=== PATIENT | female | born 1965 | race Caucasian/White ===

== ENCOUNTER 2018-04-15 09:00 | Outpatient (RCR) | payer BC, SELFPAY ==
--- NOTE | 2018-03-09 18:14 | PT.OTN ---
Addendum entered and electronically signed by Candace Gould, PT 03/17/18 11:32: Transition note: On February 15, 2018 our therapy services consisting of Speech, Occupational, and Physical Therapy transitioned from the [employer] electronic documentation system to a new [employer] electronic documentation system.?? All documentation prior to February 15 can be found under [employer] saved data. From February 15 forward all medical record documentation will be in [email or web address]. Original Note: Current Diagnoses Stiffness of left knee, not elsewhere classified (03/09/18) Other specified joint disorders, left knee (03/09/18) Muscle weakness (generalized) (03/09/18) Iliotibial band syndrome, left leg (03/09/18) Physical Therapy Treatment Note PT-OP-A Visit Information Start: 03/09/18 18:02 Freq: Status: Active Protocol: Document 03/09/18 16:45 [facility] (Rec: 03/09/18 18:13 [facility] [email or web address]) Out-Patient Physical Therapy Visit Information Visit Information Visit Type Treatment Note Visit Start Time 16:03 Visit Stop Time 16:45 Total Visit Minutes 42 Visit Number 4 Number of OCCUPATIONAL THERAPY SPECIALIST Visits 0 Evaluation Information Evaluation Date 01/28/18 PT-OP-C Subjective Start: 03/09/18 18:02 Freq: Status: Active Protocol: Document 03/09/18 16:45 [facility] (Rec: 03/09/18 18:13 [facility] [email or web address]) OP-PT Subjective Patient Comments Patient Comments Pt notes that her pain and swelling of the L knee are improving a little. She did some seated rowing which flared up her pain and swelling, but has not done that since. PT-OP-J Posture/Palpation/Skin Start: 03/09/18 18:02 Freq: Status: Active Protocol: Document 03/09/18 16:45 [facility] (Rec: 03/09/18 18:13 [facility] [email or web address]) Palpation Assessment Location One Palpation Location L IT band Palpation Findings Tenderness Palpation Details moderate TTP PT-OP-Q Treatments Start: 03/09/18 18:02 Freq: Status: Active Protocol: Document 03/09/18 16:45 [facility] (Rec: 03/09/18 18:13 [facility] [email or web address]) Manual Therapy Treatment Soft Tissue Mobilization 2 Body Location L hamstrings Mobilization Type Strumming Intensity/Depth Moderate Body Position Prone Comments 12 min. 1 Body Location L IT band Mobilization Type Strumming Intensity/Depth Moderate Body Position Supine Comments 18 min. Joint Mobilizations 2 Joint L tibiofibular (superior) Direction AP Grade IV Body Position Supine Reps/Duration 6 min. 1 Joint L tibiofemoral Direction posterior, anterior Grade IV Body Position Supine Reps/Duration 6 min. Self-Care/Home Management Treatment Education Patient Education Home Exercise Program Safety Other Education discussed about cont to perform HEP and to not perform deep knee flexion activities or repetitive aerobic training at this time (i.e. bike, running, rowing, elliptical, etc.) PT-OP-T Assessment and Plan Start: 03/09/18 18:02 Freq: Status: Active Protocol: Document 03/09/18 16:45 [facility] (Rec: 03/09/18 18:13 [facility] [email or web address]) Physical Therapy Assessment Assessment Summary Assessment Pt still with mild to moderate swelling of the lateral L knee, but pt appears to be compliant with HEP. Her exacerbation of pain and swelling post-rowing activity likely due to this being a repetitive and an activity which requires significant knee flexion which she does not tolerate well at this time . Pt with tibiofibular joint ( superior) stiffness, which may be playing a role in pain and limited ROM. Physical Therapy Plan Frequency and Duration Frequency of Treatment 2x/Week Duration of Treatment 8 weeks Plan of Care Start Date 01/28/18 Plan of Care End Date 03/24/18 Next Visit Focus/Plan Next Visit Plan cont. joint mobilizations, STR , if still swelling consider ultrasound. Please Sign and Return: I have reviewed this Plan of Care and certify that the skilled therapy services above are required to meet the patient???s needs. Physician Signature Date Printed Name and Credentials Clinical Instructor Signature Printed Name and Credentials
--- NOTE | 2018-03-11 17:05 | PT.OTN ---
Current Diagnoses Stiffness of left knee, not elsewhere classified (03/11/18) Other specified joint disorders, left knee (03/11/18) Muscle weakness (generalized) (03/11/18) Iliotibial band syndrome, left leg (03/11/18) Physical Therapy Treatment Note PT-OP-A Visit Information Start: 03/09/18 18:02 Freq: Status: Active Protocol: Document 03/11/18 16:35 [facility] (Rec: 03/11/18 17:04 [facility] [email or web address]) Out-Patient Physical Therapy Visit Information Visit Information Visit Type Treatment Note Visit Start Time 16:00 Visit Stop Time 16:35 Total Visit Minutes 35 Visit Number 5 Number of DEICER REPAIRER PNEUMATIC Visits 0 Evaluation Information Evaluation Date 01/28/18 PT-OP-C Subjective Start: 03/09/18 18:02 Freq: Status: Active Protocol: Document 03/11/18 16:35 [facility] (Rec: 03/11/18 17:04 [facility] [email or web address]) OP-PT Subjective Patient Comments Patient Comments Pt states that she felt better after session on Wednesday, and feels like her knee is a little less swollen. PT-OP-J Posture/Palpation/Skin Start: 03/09/18 18:02 Freq: Status: Active Protocol: Document 03/11/18 16:35 RCC (Rec: 03/11/18 17:04 [facility] [email or web address]) Palpation Assessment Location One Palpation Location L IT band Palpation Findings Tenderness Palpation Details mild to mod TTP PT-OP-Q Treatments Start: 03/09/18 18:02 Freq: Status: Active Protocol: Document 03/11/18 16:35 [facility] (Rec: 03/11/18 17:04 [facility] [email or web address]) Manual Therapy Treatment Soft Tissue Mobilization 3 Body Location L gastroc Mobilization Type Strumming Intensity/Depth Moderate Body Position Prone Comments 7 min. 2 Body Location L hamstrings Mobilization Type Strumming Intensity/Depth Moderate Body Position Prone Comments 8 min. 1 Body Location L IT band Mobilization Type Strumming Intensity/Depth Moderate Body Position Supine Comments 12 min. Joint Mobilizations 2 Joint L tibiofibular (superior) Direction AP Grade IV Body Position Supine Reps/Duration 8 min. PT-OP-T Assessment and Plan Start: 03/09/18 18:02 Freq: Status: Active Protocol: Document 03/11/18 16:35 RCC (Rec: 03/11/18 17:04 [facility] [email or web address]) Physical Therapy Assessment Assessment Summary Assessment Pt still with mild to moderate restriction of the L IT band, however does appear to have mildly improved IT band mobility. Pt tolerated mobilization of superior tibiofibular joint, and knee extension to 0 degrees AROM after session. Pt is yet to return to her prior level of recreational activities at this time due to pain, swelling, and decreased soft tissue mobility. Physical Therapy Plan Frequency and Duration Frequency of Treatment 2x/Week Duration of Treatment 8 weeks Plan of Care Start Date 01/28/18 Plan of Care End Date 03/24/18 Next Visit Focus/Plan Next Visit Plan STR IT band, gastroc and hamstrings. Progress toward slow closed chain (lunges) activities. Please Sign and Return: I have reviewed this Plan of Care and certify that the skilled therapy services above are required to meet the patient???s needs. Physician Signature Date Printed Name and Credentials Clinical Instructor Signature Printed Name and Credentials
--- NOTE | 2018-03-23 16:58 | PT.OTN ---
Current Diagnoses Stiffness of left knee, not elsewhere classified (03/23/18) Other specified joint disorders, left knee (03/23/18) Muscle weakness (generalized) (03/23/18) Iliotibial band syndrome, left leg (03/23/18) Physical Therapy Treatment Note PT-OP-A Visit Information Start: 03/09/18 18:02 Freq: Status: Active Protocol: Document 03/23/18 16:40 RCC (Rec: 03/23/18 16:58 [facility] [email or web address]) Out-Patient Physical Therapy Visit Information Visit Information Visit Type Treatment Note Visit Start Time 16:00 Visit Stop Time 16:40 Total Visit Minutes 40 Visit Number 6 Number of TANYARD WORKER Visits 0 Evaluation Information Evaluation Date 01/28/18 PT-OP-C Subjective Start: 03/09/18 18:02 Freq: Status: Active Protocol: Document 03/23/18 16:40 [facility] (Rec: 03/23/18 16:58 [facility] [email or web address]) OP-PT Subjective Patient Comments Patient Comments Pt states that she definitely feels better after having therapy 2 times per week vs once. She is doing yoga, but not back to spin classes. PT-OP-J Posture/Palpation/Skin Start: 03/09/18 18:02 Freq: Status: Active Protocol: Document 03/23/18 16:40 [facility] (Rec: 03/23/18 16:58 [facility] [email or web address]) Palpation Assessment Location One Palpation Location L IT band Palpation Findings Tenderness Palpation Details mild to mod TTP PT-OP-Q Treatments Start: 03/09/18 18:02 Freq: Status: Active Protocol: Document 03/23/18 16:40 [facility] (Rec: 03/23/18 16:58 [facility] [email or web address]) Therapeutic Exercises Supine Exercises 1 Supine Exercise Name Sciatic nerve glide Side left Reps/Minutes 15 reps Standing Exercises 1 Standing Exercise Name Femoral nerve glide Side left Equipment Used ball Reps/Minutes 15 reps Manual Therapy Treatment Soft Tissue Mobilization 3 Body Location L gastroc Mobilization Type Strumming Intensity/Depth Moderate Body Position Prone Comments 5 min. 2 Body Location L hamstrings Mobilization Type Strumming Intensity/Depth Moderate Body Position Prone Comments 5 min. 1 Body Location L IT band Mobilization Type Strumming Intensity/Depth Moderate Body Position Supine Comments 15 min. Joint Mobilizations 2 Joint L tibiofibular (superior) Direction AP Grade IV Body Position Supine Reps/Duration 5 min. PT-OP-T Assessment and Plan Start: 03/09/18 18:02 Freq: Status: Active Protocol: Document 03/23/18 16:40 [facility] (Rec: 03/23/18 16:58 [facility] [email or web address]) Physical Therapy Assessment Assessment Summary Assessment Pt with less swelling in the L knee, still with tenderness mostly at the distal portion of the IT band. Pt with tension in both the sciatic and femoral nerves, and is to perform nerve glides at home. Physical Therapy Plan Next Visit Focus/Plan Next Note Type Treatment Note Next Visit Plan Slow closed chain (lunges) activities, Elliptical. Please Sign and Return: I have reviewed this Plan of Care and certify that the skilled therapy services above are required to meet the patient?s needs. Physician Signature Date Printed Name and Credentials Clinical Instructor Signature Printed Name and Credentials
--- NOTE | 2018-03-25 17:21 | PT.OTN ---
Current Diagnoses Stiffness of left knee, not elsewhere classified (03/25/18) Other specified joint disorders, left knee (03/25/18) Muscle weakness (generalized) (03/25/18) Iliotibial band syndrome, left leg (03/25/18) Physical Therapy Treatment Note PT-OP-A Visit Information Start: 03/09/18 18:02 Freq: Status: Active Protocol: Document 03/25/18 16:45 [facility] (Rec: 03/27/18 17:20 [facility] [email or web address]) Out-Patient Physical Therapy Visit Information Visit Information Visit Type Treatment Note Visit Start Time 16:00 Visit Stop Time 16:45 Total Visit Minutes 45 Visit Number 7 Number of PRODUCT MANAGEMENT INTERN Visits 0 Evaluation Information Evaluation Date 01/28/18 PT-OP-C Subjective Start: 03/09/18 18:02 Freq: Status: Active Protocol: Document 03/25/18 16:45 [facility] (Rec: 03/27/18 17:20 [facility] [email or web address]) OP-PT Subjective Patient Comments Patient Comments Pt notes she feels like swelling is down. She is doing modified yoga right now for flexibility and her HEP. Patient Reported Progress Improving OP-PT Pain Assessment Location Left Lateral Knee Intensity 2 Scale Used Numeric (1 - 10) Description Sharp Tender PT-OP-F Manual Assessment Start: 03/27/18 17:03 Freq: Status: Active Protocol: Document 03/25/18 16:45 [facility] (Rec: 03/27/18 17:20 [facility] [email or web address]) Manual Assessments Joint Mobility Assessment Joint Mobility Assessment hypomobility of superior tibiofibular joint. PT-OP-J Posture/Palpation/Skin Start: 03/09/18 18:02 Freq: Status: Active Protocol: Document 03/25/18 16:45 [facility] (Rec: 03/27/18 17:20 [facility] [email or web address]) Palpation Assessment Location One Palpation Location L IT band Palpation Findings Tenderness Palpation Details mild to mod TTP Skin Assessment Circumference Measurement 1 Location L knee (joint line) Measurement (Centimeters) 35 PT-OP-K Range of Motion Start: 03/27/18 17:03 Freq: Status: Active Protocol: Document 03/25/18 16:45 RCC (Rec: 03/27/18 17:20 [facility] [email or web address]) Knee Goniometric Range of Motion Knee Measured in Degrees Left Flexion Active (degrees) 136 Extension Active (degrees) 0 Knee ROM Limitations Knee ROM Limitations Soft Tissue Tightness PT-OP-M Strength Start: 03/27/18 17:03 Freq: Status: Active Protocol: Document 03/25/18 16:45 [facility] (Rec: 03/27/18 17:20 [facility] [email or web address]) Hip Strength Hip Manual Muscle Testing Left Flexion (L2) 5 Normal Abduction 5 Normal External Rotation 4+ Good+ PT-OP-Q Treatments Start: 03/09/18 18:02 Freq: Status: Active Protocol: Document 03/25/18 16:45 [facility] (Rec: 03/27/18 17:20 [facility] [email or web address]) Cardio Equipment Elliptical Duration (Minutes) 6 Resistance 1 Therapeutic Exercises Standing Exercises 3 Standing Exercise Name squats Side bilateral Equipment Used standing bar Reps/Minutes 2 x 10 2 Standing Exercise Name Lunges Side bilateral Reps/Minutes 2 x 10 Manual Therapy Treatment Soft Tissue Mobilization 2 Body Location L hamstrings Mobilization Type Strumming Intensity/Depth Moderate Comments 5 min. 1 Body Location L IT band Mobilization Type Strumming Intensity/Depth Moderate Body Position Supine Comments 15 min. Joint Mobilizations 2 Joint L tibiofibular (superior) Direction AP Grade IV Body Position Supine Reps/Duration 4 min. Other Other Manual Treatments 5 min: hip MMT, knee ROM, palpation, girth measurements. PT-OP-T Assessment and Plan Start: 03/09/18 18:02 Freq: Status: Active Protocol: Document 03/25/18 16:45 [facility] (Rec: 03/27/18 17:20 [facility] [email or web address]) Physical Therapy Assessment Goals Five Impairment body mechanics Front Worker Goal (LTG) pt will perform step downs off of a 6 step with neutral knee/LE alignment prior to d/c . LTG Duration 6 weeks Four Impairment L hip weakness Front Worker Goal (LTG) 5/5 hip abduction, flexion, and ER LTG Duration 6 weeks Three Impairment L knee ROM Front Worker Goal (LTG) 0-145 deg AROM LTG Duration 6 weeks Two Impairment Pain Front Worker Goal (LTG) 0/10 pain LTG Duration 6 weeks One Impairment Recreational activity Halfway Goal (LTG) Pt will return to spin class and exercises at the gym without restrictions 3-4 days per week for 1 hr prior to d/c LTG Duration 6 weeks Progress Towards Goals Progress Towards Goals Progressing Toward Goals Progress Comments Pt with 5/5 MMT hip flexion and abduction, is doing yoga ( modified) but not back to maritime officer at the gym. Pain 2/10 ( rated 3/10) on initial evaluation, and knee ROM to 136 deg AROM of flexion (left) . Assessment Summary Assessment Pt's swelling decreased 0.9 cm since initial evaluation at the L knee joint line, and pain slightly improved. Pt tolerated the elliptical well, which was her first repetitive cardio activity since initial injury that did not flare up her L knee (pt tried rowing on her own with increased pain). Overall, pt appears to be improving with decreased limitations of activities, improved strength, and less swelling but is still not back to her prior level of function. Pt would benefit from continuing skilled outpatient physical therapy to achieve established goals and return to prior level of function. Physical Therapy Plan Frequency and Duration Frequency of Treatment 2x/Week Duration of Treatment 6 weeks Plan of Care Start Date 03/25/18 Plan of Care End Date 05/06/18 Therapeutic Interventions Therapeutic Interventions Aquatic Therapy Balance Training Gait Training Home Exercise Program Joint Mobilizations Manual Therapy Neuromuscular Re-education Patient/Caregiver Education Self-Care/Home Management Soft Tissue Mobilization Taping Therapeutic Activities Therapeutic Exercises Modalities Cold Pack/Ice Massage Electric Stimulation Hot Packs Iontophoresis Ultrasound Other Therapeutic Interventions Iontophoresis: dexamethasone 4 mg/mL. Next Visit Focus/Plan Next Note Type Treatment Note Next Visit Plan progress L knee and hip strength, activity tolerance. Please Sign and Return: I have reviewed this Plan of Care and certify that the skilled therapy services above are required to meet the patient?s needs. Physician Signature Date Printed Name and Credentials Clinical Instructor Signature Printed Name and Credentials
--- NOTE | 2018-04-13 16:50 | PT.OTN ---
Current Diagnoses Stiffness of left knee, not elsewhere classified (04/13/18) Other specified joint disorders, left knee (04/13/18) Muscle weakness (generalized) (04/13/18) Iliotibial band syndrome, left leg (04/13/18) Physical Therapy Treatment Note PT-OP-A Visit Information Start: 03/09/18 18:02 Freq: Status: Active Protocol: Document 04/13/18 16:50 RCC (Rec: 04/13/18 17:11 RCC [email or web address]) Out-Patient Physical Therapy Visit Information Visit Information Visit Type Treatment Note Visit Start Time 16:05 Visit Stop Time 16:50 Total Visit Minutes 45 Visit Number 8 Number of CIVIL ENGINEERING PROFESSOR Visits 0 Evaluation Information Evaluation Date 01/28/18 PT-OP-C Subjective Start: 03/09/18 18:02 Freq: Status: Active Protocol: Document 04/13/18 16:50 RCC (Rec: 04/13/18 17:11 RCC [email or web address]) OP-PT Subjective Patient Comments Patient Comments Pt notes some snapping going up stairs. PT-OP-F Manual Assessment Start: 03/27/18 17:03 Freq: Status: Active Protocol: Document 04/13/18 16:50 [facility] (Rec: 04/13/18 17:11 [facility] [email or web address]) Manual Assessments Soft Tissue Assessment Soft Tissue Mobility Assessment TTP: L IT band, TFL, lateral quads PT-OP-J Posture/Palpation/Skin Start: 03/09/18 18:02 Freq: Status: Active Protocol: Document 03/25/18 16:45 [facility] (Rec: 03/27/18 17:20 [facility] [email or web address]) Palpation Assessment Location One Palpation Location L IT band Palpation Findings Tenderness Palpation Details mild to mod TTP Skin Assessment Circumference Measurement 1 Location L knee (joint line) Measurement (Centimeters) 35 PT-OP-K Range of Motion Start: 03/27/18 17:03 Freq: Status: Active Protocol: Document 03/25/18 16:45 [facility] (Rec: 03/27/18 17:20 [facility] [email or web address]) Knee Goniometric Range of Motion Knee Measured in Degrees Left Flexion Active (degrees) 136 Extension Active (degrees) 0 Knee ROM Limitations Knee ROM Limitations Soft Tissue Tightness PT-OP-M Strength Start: 03/27/18 17:03 Freq: Status: Active Protocol: Document 03/25/18 16:45 [facility] (Rec: 03/27/18 17:20 [facility] [email or web address]) Hip Strength Hip Manual Muscle Testing Left Flexion (L2) 5 Normal Abduction 5 Normal External Rotation 4+ Good+ PT-OP-Q Treatments Start: 03/09/18 18:02 Freq: Status: Active Protocol: Document 04/13/18 16:50 [facility] (Rec: 04/13/18 17:11 [facility] [email or web address]) Therapeutic Exercises Supine Exercises 2 Supine Exercise Name Rectus femoris and psoas stretch Side left Reps/Minutes 30 sec holds Other Exercises 1 Other Exercise Name IT band stretch (prone and standing) Side left Reps/Minutes 30 sec hold each Manual Therapy Treatment Soft Tissue Mobilization 4 Body Location L TFL Mobilization Type Strumming Intensity/Depth Moderate Body Position Supine Comments 4 min 2 Body Location L hamstrings Mobilization Type Strumming Intensity/Depth Moderate Comments 8 min. 1 Body Location L IT band Mobilization Type Strumming Intensity/Depth Moderate Body Position Supine Comments 20 min. PT-OP-R Modalities Start: 04/13/18 16:57 Freq: Status: Active Protocol: Document 04/13/18 16:50 [facility] (Rec: 04/13/18 17:11 [facility] [email or web address]) Ultrasound Therapy Treatment Left Lateral Knee Treatment Duration (minutes) 8 Coupling Medium Ultrasound Gel Applicator Size (cm2) 10 Frequency Setting (mHz) 1 Duty Cycle 100 Intensity Setting (w/cm2) 1.2 Comments IT band (distal) PT-OP-T Assessment and Plan Start: 03/09/18 18:02 Freq: Status: Active Protocol: Document 04/13/18 16:50 [facility] (Rec: 04/13/18 17:11 [facility] [email or web address]) Physical Therapy Assessment Assessment Summary Assessment Pt with (+) snapping of the L knee with ascending stairs, lateral knee likely the IT band vs PF dysfunction. Pt with improved flexibility of the IT band but still with tension, greatest distally. She is not back to her prior level of activities. Physical Therapy Plan Frequency and Duration Frequency of Treatment 2x/Week Duration of Treatment 6 weeks Plan of Care Start Date 03/25/18 Plan of Care End Date 05/06/18 Next Visit Focus/Plan Next Note Type Treatment Note Next Visit Plan L hip strengthening.
--- NOTE | 2018-04-15 09:40 | PT.OTN ---
Current Diagnoses Stiffness of left knee, not elsewhere classified (04/15/18) Other specified joint disorders, left knee (04/15/18) Muscle weakness (generalized) (04/15/18) Iliotibial band syndrome, left leg (04/15/18) Physical Therapy Treatment Note PT-OP-A Visit Information Start: 03/09/18 18:02 Freq: Status: Active Protocol: Document 04/15/18 09:40 [facility] (Rec: 04/15/18 09:46 [facility] [email or web address]) Out-Patient Physical Therapy Visit Information Visit Information Visit Type Treatment Note Visit Start Time 09:00 Visit Stop Time 09:40 Total Visit Minutes 40 Visit Number 9 Number of UNDERWRITING SPECIALIST Visits 0 Evaluation Information Evaluation Date 01/28/18 PT-OP-C Subjective Start: 03/09/18 18:02 Freq: Status: Active Protocol: Document 04/15/18 09:40 [facility] (Rec: 04/15/18 09:46 [facility] [email or web address]) OP-PT Subjective Patient Comments Patient Comments Pt notes her lateral knee is a good sore, since last session. Her L knee still snaps occasionally but less than earlier this week. PT-OP-F Manual Assessment Start: 03/27/18 17:03 Freq: Status: Active Protocol: Document 04/15/18 09:40 [facility] (Rec: 04/15/18 09:46 [facility] [email or web address]) Manual Assessments Joint Mobility Assessment Joint Mobility Assessment hypomobility of superior tibiofibular joint. PT-OP-J Posture/Palpation/Skin Start: 03/09/18 18:02 Freq: Status: Active Protocol: Document 03/25/18 16:45 RCC (Rec: 03/27/18 17:20 [facility] [email or web address]) Palpation Assessment Location One Palpation Location L IT band Palpation Findings Tenderness Palpation Details mild to mod TTP Skin Assessment Circumference Measurement 1 Location L knee (joint line) Measurement (Centimeters) 35 PT-OP-K Range of Motion Start: 03/27/18 17:03 Freq: Status: Active Protocol: Document 03/25/18 16:45 RCC (Rec: 03/27/18 17:20 [facility] [email or web address]) Knee Goniometric Range of Motion Knee Measured in Degrees Left Flexion Active (degrees) 136 Extension Active (degrees) 0 Knee ROM Limitations Knee ROM Limitations Soft Tissue Tightness PT-OP-M Strength Start: 03/27/18 17:03 Freq: Status: Active Protocol: Document 03/25/18 16:45 RCC (Rec: 03/27/18 17:20 RCC [email or web address]) Hip Strength Hip Manual Muscle Testing Left Flexion (L2) 5 Normal Abduction 5 Normal External Rotation 4+ Good+ PT-OP-Q Treatments Start: 03/09/18 18:02 Freq: Status: Active Protocol: Document 04/15/18 09:40 RCC (Rec: 04/15/18 09:46 [facility] [email or web address]) Therapeutic Activity Therapeutic Activity 1 Name STR L hamstring Reps/Minutes 2 min Comments self-STR with tennis ball Manual Therapy Treatment Soft Tissue Mobilization 4 Body Location L TFL Mobilization Type Strumming Intensity/Depth Moderate Body Position Supine 2 Body Location L hamstrings Mobilization Type Strumming Intensity/Depth Moderate 1 Body Location L IT band Mobilization Type Strumming Intensity/Depth Moderate Body Position Supine Joint Mobilizations 3 Joint PF Direction inferior, superior, medial Grade IV Body Position Supine 2 Joint L tibiofibular (superior) Direction AP, PA Grade IV Body Position Supine PT-OP-R Modalities Start: 04/13/18 16:57 Freq: Status: Active Protocol: Document 04/13/18 16:50 RCC (Rec: 04/13/18 17:11 RCC [email or web address]) Ultrasound Therapy Treatment Left Lateral Knee Treatment Duration (minutes) 8 Coupling Medium Ultrasound Gel Applicator Size (cm2) 10 Frequency Setting (mHz) 1 Duty Cycle 100 Intensity Setting (w/cm2) 1.2 Comments IT band (distal) PT-OP-T Assessment and Plan Start: 03/09/18 18:02 Freq: Status: Active Protocol: Document 04/15/18 09:40 RCC (Rec: 04/15/18 09:46 [facility] [email or web address]) Physical Therapy Assessment Assessment Summary Assessment Pt with improved tibiofibular joint mobility after manual therapy and STR to lateral HS. Pt continues to have mild L knee swelling and is not able to run or perform recreational activities without modifications. Physical Therapy Plan Frequency and Duration Frequency of Treatment 2x/Week Duration of Treatment 6 weeks Plan of Care Start Date 03/25/18 Plan of Care End Date 05/06/18 Next Visit Focus/Plan Next Note Type Treatment Note Next Visit Plan L hip and knee strengthening.
--- NOTE | 2018-09-29 10:02 | PT.OPDS ---
Current Diagnoses Stiffness of left knee, not elsewhere classified (04/15/18) Other specified joint disorders, left knee (04/15/18) Muscle weakness (generalized) (04/15/18) Iliotibial band syndrome, left leg (04/15/18) Provider Visit Care Team Role Provider Type Anselmo Ross Family Provider Non-Staff Primary Care Provider Specialty: Medical Address: [address], [place], [address] Email: Jt España MD Attending Provider Physician Specialty: Orthopedic Surgery Address: [address] [place] [address], [id number] Email: [email or web address] Visit Number Visit Number 9 Discharge Summary PT-OP-C Subjective Start: 03/09/18 18:02 Freq: Status: Active Protocol: Document 04/15/18 09:40 RCC (Rec: 04/15/18 09:46 [facility] [email or web address]) OP-PT Subjective Patient Comments Patient Comments Pt notes her lateral knee is a good sore, since last session. Her L knee still snaps occasionally but less than earlier this week. PT-OP-F Manual Assessment Start: 03/27/18 17:03 Freq: Status: Active Protocol: Document 04/15/18 09:40 RCC (Rec: 04/15/18 09:46 [facility] [email or web address]) Manual Assessments Joint Mobility Assessment Joint Mobility Assessment hypomobility of superior tibiofibular joint. PT-OP-J Posture/Palpation/Skin Start: 03/09/18 18:02 Freq: Status: Active Protocol: Document 03/25/18 16:45 RCC (Rec: 03/27/18 17:20 [facility] [email or web address]) Palpation Assessment Location One Palpation Location L IT band Palpation Findings Tenderness Palpation Details mild to mod TTP Skin Assessment Circumference Measurement 1 Location L knee (joint line) Measurement (Centimeters) 35 PT-OP-K Range of Motion Start: 03/27/18 17:03 Freq: Status: Active Protocol: Document 03/25/18 16:45 RCC (Rec: 03/27/18 17:20 [facility] [email or web address]) Knee Goniometric Range of Motion Knee Measured in Degrees Left Flexion Active (degrees) 136 Extension Active (degrees) 0 Knee ROM Limitations Knee ROM Limitations Soft Tissue Tightness PT-OP-M Strength Start: 03/27/18 17:03 Freq: Status: Active Protocol: Document 03/25/18 16:45 RCC (Rec: 03/27/18 17:20 [facility] [email or web address]) Hip Strength Hip Manual Muscle Testing Left Flexion (L2) 5 Normal Abduction 5 Normal External Rotation 4+ Good+ PT-OP-T Assessment and Plan Start: 03/09/18 18:02 Freq: Status: Active Protocol: Document 09/29/18 09:59 [facility] (Rec: 09/29/18 10:02 [facility] [email or web address]) Physical Therapy Assessment Assessment Summary Assessment Pt attended 9 PT sessions including the initial evaluation, at which time she was improving and able to get back to walking and elliptical training, but was not appropriate to return to spin class (mechanism of injury). Pt did not attend or schedule further PT after 04/15/18, and at this time given the amount of time that has passed since she was last seen, we would require a new PT referral if appropriate to return to PT. Pt is d/c at this time, recommend follow up with PCP if issues continue and/or worsen. Goals were unable to be assessed due to pt not completing the most recent/ current POC. Physical Therapy Plan Discharge Physical Therapy Discharge Reasons No Longer Attending PT
== END 2018-09-29 13:30 ==
LOC: PHYS 09:00
PROVIDERS: Family Provider Family Medicine; PCP Family Medicine; Visit Provider Orthopaedic Surgery
DX: M25.862 Other specified joint disorders, left knee (principal); M62.81 Muscle weakness (generalized); M25.662 Stiffness of left knee, not elsewhere classified; M76.32 Iliotibial band syndrome, left leg
CPT/HCPCS: 97035; 97110; 97140